=== PATIENT | male | born 1980 | race Caucasian/White ===

== ENCOUNTER 2018-03-19 08:42 | Emergency (ER) | payer MEDICAID ==
[~2018-03-19] VITALS: Ht 188 cm; Wt 81.6 kg
[2018-03-19 08:51] VITALS: BP 111/63
== END 2018-03-19 10:22 | disposition home or self-care (01) ==
LOC: ER 08:42
DX: L03.311 Cellulitis of abdominal wall (principal)

== ENCOUNTER 2018-08-16 02:11 | Emergency (ER) | payer MEDICAID ==
[~2018-08-16] VITALS: Ht 188 cm; Wt 86.2 kg
[2018-08-16 04:37] VITALS: BP 116/81
[2018-08-16] MEDS ORDERED: cefTRIAXone SOD 1,000 MG VL IM ONE (04:45)
== END 2018-08-16 04:48 | disposition home or self-care (01) ==
LOC: ER 02:12
DX: L02.416 Cutaneous abscess of left lower limb (principal); Z88.1 Allergy status to other antibiotic agents
CPT/HCPCS: 96372; 99283; J0696

== ENCOUNTER 2020-07-27 12:02 | Emergency (ER) | payer SELFPAY ==
[~2020-07-27] VITALS: Ht 188 cm; Wt 88.9 kg
[2020-07-27 12:18] VITALS: BP 125/74
== END 2020-07-27 15:02 | disposition left against medical advice (07) ==
LOC: ER 12:04
DX: M79.10 Myalgia, unspecified site (principal); M54.2 Cervicalgia; M54.5 Low back pain; Z88.1 Allergy status to other antibiotic agents
CPT/HCPCS: 72040; 72100